=== PATIENT | female | born 1995 | race Caucasian/White ===

== ENCOUNTER 2023-05-04 16:39 | Outpatient (CLI) | payer BC, MEDICAID, SELFPAY ==
[2023-05-04] VITALS (7 sets, daily range): BP systolic 108–132; BP diastolic 56–69; PULSE 92–111; RESP 16; TEMP 36.6; BMI 28.4
--- NOTE | 2023-05-04 17:43 | USR_ITS ---
PROCEDURE INFORMATION: Exam: US , Limited Exam date and time: 05/04/2023 7:25 PM Age: 28 years old Clinical indication: Pain; Other: No prior ultrasound; Gestational age or lmp: 38w 6 d; ; Patient HX: G1-p0; Additional info: No care, for dating, anatomy, efw, placenta location, steve TECHNIQUE: Imaging protocol: Real-time ultrasound of the maternal uterus with image documentation. Exam focused on the clinical indication. COMPARISON: No relevant prior studies available. FINDINGS: Gestation: Single, living, intrauterine gestation in vertex presentation. heart rate: 141 bpm. Placenta: Fundally and to right, without previa or hemorrhage. Amniotic fluid index: Qualitatively and quantitatively normal, with amniotic fluid index measuring 18 cm in 4 quadrants. survey: demonstrates normal appearing lateral ventricles, posterior fossa, left-sided 4-chamber heart, LVOT, RVOT, left-sided stomach, 3-vessel cord insertion, bilateral kidneys, bladder, and cervical, thoracic, and lumbar spine. BIOMETRY: Gestational age (AUA): Composite age 38 weeks, 6 days +/-3 weeks, compared to estimated gestational age of 38 weeks, 3 days based on LMP of 08/08/22. Estimated weight: 3569 +/- 535 g (84th percentile based on ultrasound EGA). Biparietal diameter (BPD): 9.4 cm, 38 weeks, 3 days Head circumference (HC): 34.1 cm, 39 weeks, 2 days Abdominal circumference (AC): 34.7 cm, 38 weeks, 4 days Femur length (FL): 7.6 cm, 38 weeks, 6 days MATERNAL: Cervix: Closed. Other findings: Bilateral adnexa were not evaluated. US/ OB limited [id number] IMPRESSION: 1. Single, living, intrauterine gestation in vertex presentation, with EGA of 38 weeks, 6 days based on internally concordant measurements, compared to EEG of 38 weeks, 3 days based on LMP of 08/08/22. 2. Normal survey as described above.
[2023-05-04 19:09] LABS: Basophils # 0.1 10^3/uL (0.0-0.1); Basophils % 0.3 %; Eosinophils # 0.1 10^3/uL (0.0-0.8); Hematocrit 34.8 % (36-47); Lymphocytes # 2.5 10^3/uL (0.8-4.8); Lymphocytes % 17.5 %; Mean Corpuscular HGB Conc 32.5 g/dL (30-55); Mean Corpuscular Hemoglobin 25.7 pg (27-33); Mean Corpuscular Volume 79.1 fl (85-98); Mean Platelet Volume 10.2 fL (7.4-10.4); Monocytes # 1.3 10^3/uL (0.2-0.9); Monocytes % 8.8 %; Neutrophils # 10.36 10^3/uL (1.8-7.7); Neutrophils % 71.5 %; Nucleated Red Blood Cells % 0 %; Platelet Count 277 10^3/cmm (157-399); Red Cell Distribution Width 13.6 % (12.1-15.1); White Blood Count 14.49 10^3/uL (3.29-11.43)
[2023-05-04 19:27] LABS: HIV 1 & 2 Antibody Non-Reactive (Non-Reactiv); HIV 1 & 2 Antigen Non-Reactive (Non-Reactiv)
[2023-05-04 21:02] LABS: Rapid Plasma Reagin Syphilis Nonreactive (Nonreactive)
[2023-05-04 21:09] LABS: Hepatitis B Surface Antigen Non-Reactive (Nonreactive); Rubella IgG 42.1 IU/mL (0.0-10.0)
[2023-05-04 21:21] LABS: Alanine Aminotransferase 9 U/L (0-33); Albumin Level 3.5 g/dL (3.5-5.2); Alkaline Phosphatase 252 U/L (35-105); Anion Gap 14.5 (5-19); Aspartate Amino Transferase 18 U/L (0-32); Blood Urea Nitrogen 5 mg/dL (6-20); Calcium 9.2 mg/dL (8.5-10.5); Carbon Dioxide 21 mmol/L (22-29); Chloride 102 mmol/L (98-107); Globulin 3.1 g/dL (1.3-4.6); Glomerular Filtration Rate 268.9 mL/min (90-130); Glucose 83 mg/dL (65-115); Osmolality Calculated 274 mOsm/kg (285-295); Potassium 3.5 mmol/L (3.5-5.1); Sodium 134 mmol/L (136-145); Total Bilirubin 0.2 mg/dL (0.15-1.2); Total Protein 6.6 g/dL (6.6-8.7)
[2023-05-04 21:32] LABS: Add Urine Culture? Yes; Bacteria Urine 2+ /hpf; Bilirubin Urine Neg (Negative); Blood Urine Neg (Negative); Glucose Urine UA Norm (Normal); Ketones Urine 2+ (Negative); Leukocyte Esterase Urine 2+ (Negative); Nitrate Urine Negative (Negative); Protein Urine Neg (Negative); RBC Urine 0-4 /hpf (0-2); Squamous Epithelial Cell Urine 25-40 /hpf (0-5); Urine Appearance SL Hazy (CLEAR); Urine Color Yellow (Yellow); Urobilinogen Urine Norm (Negative); pH Urine 5 (5-7)
[2023-05-04 21:34] LABS: Amphetamines Screen Urine Negative (Negative); Barbiturates Screen Urine Negative (Negative); Benzodiazepines Screen Urine Negative (Negative); Cocaine Screen Urine Negative (Negative); Opiate Screen Urine Negative (Negative); PCP Screen Urine Negative (Negative); THC Screen Urine Negative (Negative)
[2023-05-06 12:35] LABS: Chlamydia Trachomatis RNA TMA NOT DETECTED (NOT DETECTED); Neisseria Gonorrhoeae RNA, TMA NOT DETECTED (NOT DETECTED)
== END 2023-05-04 20:30 | disposition home or self-care (01) ==
LOC: OPOB 16:40 → OBGYN 16:40
PROVIDERS: Visit Provider Obstetrics & Gynecology
DX: O26.893 Other specified pregnancy related conditions, third trimester (principal); Z3A.38 38 weeks gestation of pregnancy; R10.9 Unspecified abdominal pain
CPT/HCPCS: 36415; 59025; 76815; 80053; 80306; 81001; 85025; 86592; 86762; 86850; 86900; 87081; 87086; 87340; 87491; 87591; 87806; 99211

== ENCOUNTER → 2023-05-11 13:08 | Outpatient (BNVA) | payer BC, MEDICAID, SELFPAY | PROVIDERS: Visit Provider Obstetrics & Gynecology | DX: Z34.90 Encounter for supervision of normal pregnancy, unspecified, unspecified trimester (principal) | CPT/HCPCS: 81000 ==

== ENCOUNTER → 2023-05-14 14:00 | Outpatient (BNVA) | payer BC, MEDICAID, SELFPAY | PROVIDERS: Visit Provider Obstetrics & Gynecology | DX: Z34.90 Encounter for supervision of normal pregnancy, unspecified, unspecified trimester (principal) | CPT/HCPCS: 82950 ==

== ENCOUNTER 2023-05-20 18:06 | Outpatient (CLI) | payer BC, MEDICAID, SELFPAY ==
[2023-05-20 18:19] VITALS: BP 130/82; PULSE 94
[2023-05-20 18:21] VITALS: RESP 17; BMI 28.8
[2023-05-20 18:40] VITALS: BP 125/78; PULSE 96
== END 2023-05-20 18:43 ==
LOC: OPOB 18:07 → OBGYN 18:08
PROVIDERS: Visit Provider Obstetrics & Gynecology
DX: O48.0 Post-term pregnancy (principal); Z3A.00 Weeks of gestation of pregnancy not specified
CPT/HCPCS: 59025

== ENCOUNTER 2023-05-26 19:25 | Inpatient (IN) | payer BC, MEDICAID, SELFPAY ==
[2023-05-26 19:20] VITALS: BMI 28.9
[2023-05-26 20:35] LABS: Basophils % 0.2 %; Eosinophils # 0.1 10^3/uL (0.0-0.8); Eosinophils % 0.7 %; Hematocrit 33.7 % (36-47); Lymphocytes % 18.3 %; Mean Corpuscular HGB Conc 31.5 g/dL (30-55); Mean Corpuscular Hemoglobin 24.4 pg (27-33); Mean Corpuscular Volume 77.5 fl (85-98); Mean Platelet Volume 10.7 fL (7.4-10.4); Monocytes % 8.8 %; Neutrophils # 7.71 10^3/uL (1.8-7.7); Neutrophils % 71.1 %; Nucleated Red Blood Cells % 0 %; Platelet Count 259 10^3/cmm (157-399); Red Blood Count 4.35 10^6/uL (3.85-5.65); Red Cell Distribution Width 14.4 % (12.1-15.1); White Blood Count 10.84 10^3/uL (3.29-11.43)
[2023-05-26 20:38] VITALS: BP 119/82; PULSE 108
--- NOTE | 2023-05-26 20:45 | PM.OBGYHP ---
Providers/Chief Complaint Admitting Physician: Anthony Hanson MD Primary EDUCATION TRAINER: Anthony Hanson MD Chief Complaint: induction HPI EDUCATION TRAINER History of Present Illness 28 y.o. G1 LMP August 08, 2022 EDC by LMP May 15, 2023 At 41 w 4 d d by LMP No dating ultrasound Patient?s first visit was two weeks ago Patient has not had any care No previous ultrasound No c/o + active movements Has not been compliant with coming in for NSTs Now admitted for labor induction Present Details : 1 Para: 0 Labs Rubella: Immune RPR: Negative GBS: Negative Medications/Allergies Home Medications Medication Instructions Recorded Confirmed Last Taken Type No Known Home Medications 05/04/23 05/24/23 Unknown History Allergies Allergy/AdvReac Type Severity Reaction Status Date / Time No Known Allergies Allergy Unverified 05/24/23 15:55 PFSH EDUCATION TRAINER PFSH: Family History Denies family history of Colon cancer Ovarian cancer Prostate cancer Diabetes Heart disease Breast cancer Hypertension Uterine cancer Thyroid disease Stroke History History History 1 Term 0 Miscarriages/Ectopic Living Children Care KHAI Calculator Estimated Delivery Date Method Current WG Current Estimate 05/15/23 LMP (Certain) 41w 5d Other Estimates 05/12/23 Ultrasound #1 42w 1d Vitals/I&O/Wt Last Vital Signs Pulse 108 H 05/26/23 20:38 Resp 18 05/26/23 20:48 BP 119/82 05/26/23 20:38 O2 Del Method Room Air 05/26/23 19:20 Weight last 48 hrs Weight 174 lb Physical Exam Narrative: Weight 174 lbs; 5?5? VS normal Comfortable, awake, alert HEENT: normal Lungs: clear Cor: RRR Abd: nontender Fundal height 38 cm, cephalic Cx: closed / 25% / -3 / posterior FHTs normal Ext: no edema Data 05/26/23 20:20 Results Labs OB ([facility]): Obstetrics US 05/04/23 Blood Type A Positive 05/26/23 Antibody Screen Negative 05/26/23 Hct 33.7 % (36-47) L 05/26/23 Hgb 10.60 g/dL (11.27-16.99) L 05/26/23 Rho(D) Type Rh positive 05/26/23 Plt Count 259 10^3/cmm (157-399) 05/26/23 Hep Bs Antigen Non-reactive (Nonreactive) 05/04/23 Rubella IgG Antibody 42.1 IU/mL (0.0-10.0) H 05/04/23 RPR Nonreactive (Nonreactive) 05/04/23 HIV 1&2 Ab & HIV 1 Ag Non-reactive (Non-Reactiv) 05/04/23 C.trachomatis RNA (TMA) Not detected (NOT DETECTED) 05/04/23 N.gonorrhoeae RNA (TMA) Not detected (NOT DETECTED) 05/04/23 Chlamydia/GC Comment See note 05/04/23 Gest Glucose Tolerance 145 mg/dL (70-139) H 05/14/23 Urine Opiates Screen Negative ng/mL (Negative) 05/04/23 Ur Barbiturates Screen Negative ng/mL (Negative) 05/04/23 Ur Phencyclidine Scrn Negative ng/mL (Negative) 05/04/23 Ur Amphetamines Screen Negative ng/mL (Negative) 05/04/23 U Benzodiazepines Scrn Negative ng/mL (Negative) 05/04/23 Urine Cocaine Screen Negative ng/mL (Negative) 05/04/23 U Marijuana (THC) Screen Negative ng/mL (Negative) 05/04/23 Micro Urine Specimen 05/04/23 A&P Assessment and plan (1) : No care Dating by LMP No early ultrasound for dating 41 w 4 d Admitted for induction of labor Fetus reassuring Plan Cytotec 25 ug intravaginal (2) No care in current : Attestations Medical Necessity Statement*: patient at 41 w 4 d, admitted for induction of labor Coding Level of Care Code Acute Code for Chg Fwd Diagnoses Z34.90 No care in current O09.30 Time Spent (min) 30
[2023-05-26 20:48] VITALS: RESP 18
[2023-05-26] MEDS: miSOPROStol 100 mcg tablet 25 MCG VAGINAL (20:56)
[2023-05-27] VITALS (44 sets, daily range): BP systolic 109–158; BP diastolic 59–99; PULSE 80–115; TEMP 36.6–36.9; BMI 28.9
--- NOTE | 2023-05-27 05:43 | P.PN_ITS ---
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
[2023-05-27] MEDS: oxytocin 30 UNIT/500 ML BAG IV (05:57)
[2023-05-27] MEDS: dextrose 5%-lactated ringers 1,000 ML 125 ML IV ×3 (05:58→23:28)
[2023-05-27 08:04] LABS: Hepatitis C Virus Antibody Non-Reactive (Nonreactive)
--- NOTE | 2023-05-27 13:38 | P.PN_ITS ---
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 Subjective: Interval history: fetus reassuring feeling very mild UCs pitocin at 4 mU Cx: 1 cm / 75% / -2 / posterior continue pitocin Labor: Station: -1 Amniotic Membrane Status: Intact Monitor Mode: External Contraction Pattern: Regular Vitals/I&O/Wt Last Vital Signs Pulse 85 05/27/23 03:59 Resp 18 05/26/23 20:48 BP 118/69 05/27/23 03:59 O2 Del Method Room Air 05/27/23 12:48 05/26/23 05/27/23 05/27/23 22:59 06:59 14:59 Intake Total 0.467 / 0.467 3.667 / 3.667 Balance 0.467 / 0.467 3.667 / 3.667 Weight last 48 hrs Weight 174 lb Weight 174 lb Data 05/26/23 20:20 A&P Assessment and plan (1) Encounter for induction of labor: Attestations 2 Medical Necessity Statement*: patient at 41 w 5 d, admitted for induction of labor Coding Level of Care Code Acute Code for Chg Fwd Diagnoses Encounter for induction of labor Z34.90 Time Spent (min) 20
[2023-05-27] MEDS: lactated ringers 1,000 ML 999 ML IV (16:40)
[2023-05-27] MEDS: ROPivacaine syringe 100 MG/50 ML SYRINGE 10 MG EPIDURAL ×2 (17:41→21:16)
--- NOTE | 2023-05-27 17:47 | P.ANESASSM_ITS ---
Pre-Anesthetic Assessment Height/Weight: Height 1.65 m Weight 78.925 kg Pulse Resp BP O2 Del Method 102 H 18 158/65 Room Air 05/27/23 17:44 05/26/23 20:48 05/27/23 17:44 05/27/23 12:48 Preop Diagnosis: Labor pain GUME Was Beta Jacqueline taken within 24 hours: N/A Was Clonidine taken within 24 hours: N/A Social No alcohol and No tobacco Exam alert, oriented x 3, clear to auscultation bilaterally and regular rate & rhythm Airway Submandibular: within normal limits Cervical ROM: within normal limits Mallampati: Class II Dentition: full History/ROS No significant history except as noted and No significant complaints Pulmonary None reported CV/HEM None reported None reported Hepatic None reported GI None reported Metabolic None reported Musc/skel None reported Neuropsych None reported Anesthetic Plan ASA status: 2 Anesthesia: Anesthesia Evaluation and Regional (specify below) (GUME) Risk of > 500 ml blood loss (7ml/kg in children): No Medications/Allergies Home Medications Medication Instructions Recorded Confirmed Last Taken Type No Known Home Medications 05/04/23 05/24/23 Unknown History Allergies Allergy/AdvReac Type Severity Reaction Status Date / Time No Known Allergies Allergy Unverified 05/24/23 15:55 Current Medications Generic Name Dose Route Start Last Admin Trade Name Giovaniq PRN Reason Stop Dose Admin Dextrose/Lactated Ringer's 1,000 mls @ 125 mls/hr 05/26/23 20:30 05/27/23 17:40 Dextrose 5%-Lactated Ringers IV 125 mls/hr .Q8H JIMMY Infusion Oxytocin 30 unit in 500 mls @ 1 mls/hr 05/27/23 05:30 05/27/23 14:56 Pitocin IV 7 milliunit/min .Q24H JIMMY 7 mls/hr Titration Protocol 1 MILLIUNIT/MIN Lactated Ringer's 1,000 mls @ 999 mls/hr 05/27/23 16:20 05/27/23 17:40 Lactated Ringers IV Infused .Q1H1M PRN Infusion See label comments Ropivacaine 100 mg in 50 mls @ 10 mls/hr 05/27/23 16:30 05/27/23 17:41 Naropin Syringe EPIDURAL 10 mls/hr .Q5H JIMMY Administration PFSH Anesthesia Family History Denies family history of Colon cancer Ovarian cancer Prostate cancer Diabetes Heart disease Breast cancer Hypertension Uterine cancer Thyroid disease Stroke Female Reproductive History : 1 Data Anesthesia 05/26/23 20:20 Short CBC 05/26/23 Range/Units 20:20 WBC 10.84 (3.29-11.43) 10^3/uL Hgb 10.60 L (11.27-16.99) g/dL Hct 33.7 L (36-47) % MCV 77.5 L (85-98) fl Plt Count 259 (157-399) 10^3/cmm Neut % (Auto) 71.1 % Neut # (Auto) 7.71 H (1.8-7.7) 10^3/uL Blood Bank 05/26/23 20:20 Blood Type A Positive Rho(D) Type Rh positive Antibody Screen Negative Cardiac Studies: 2 No Data to Display
--- NOTE | 2023-05-27 17:49 | P.ANES_ITS ---
Anesthesia Procedures Procedure/Date: 05/27/23 Epidural: Time Out Performed: Yes Consents Signed: Procedure Consent Consent: from patient, risks and benefits reviewed and patient agrees to proceed Lumbar Level: L3-L4 Epidural position: sitting Epidural procedure: sterile prep of area, 1% lidocaine to numb the area, 18 g needle, neg for pares thesia, test dose given, 1.5% xylocaine 1:200k epi (5cc), 0.2% Ropivacaine bolus ml (4cc and Fentanyl 100 mcg), placed PCEA, no systemic response, sterile dressing applied, L.U.D. no apparent complications and 0.2% Ropiavacaine @ mls/hr (10cc/hour. Pt tolerated well)
--- NOTE | 2023-05-27 21:50 | P.PN_ITS ---
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 Subjective: Interval history: fetus reassuring comfortable with epidural Cervix: 2 cm / 75% / -2 / posterior AROM, clear fluid Labor: Station: -2 Amniotic Membrane Status: Ruptured Monitor Mode: Palpation Contraction Pattern: Regular Status: Category I Vitals/I&O/Wt Last Vital Signs Temp 98.2 F 05/27/23 22:23 Pulse 93 05/27/23 23:12 Resp 18 05/26/23 20:48 BP 114/71 05/27/23 23:12 O2 Del Method Room Air 05/27/23 12:48 05/27/23 05/27/23 05/28/23 14:59 22:59 06:59 Intake Total 1032.017 / 5075.730 4041.700 / 3433.717 Balance 1032.017 / 5789.310 9430.700 / 3433.717 Weight last 48 hrs Weight 174 lb Weight 174 lb Physical Exam 2 Urinary Catheter Management: Lee: Cath Placed During This Visit: yes Reason for Continuing Indwelling Catheter: Acute Urinary Retention or Obstruction Urinary Catheter Date of Insertion: 05/27/23 Urinary Catheter Time of Insertion: 18:56 Data 05/26/23 20:20 A&P Assessment and plan (1) Encounter for induction of labor: Attestations 2 Medical Necessity Statement*: patient at 41 w 5 d, admitted for induction of labor Coding Level of Care Code Acute Code for Chg Fwd Diagnoses Encounter for induction of labor Z34.90 Time Spent (min) 30
[2023-05-28] VITALS (63 sets, daily range): BP systolic 99–195; BP diastolic 45–105; PULSE 60–131; RESP 15–18; TEMP 36.7–37.8; O2SAT 92–100
--- NOTE | 2023-05-28 00:12 | PC.NURSE ---
Unable to chart titration in JUN. Pitocin titrated to 10 with Sonido Mckeon signing off at 2054
[2023-05-28] MEDS: ROPivacaine syringe 100 MG/50 ML SYRINGE 10 MG EPIDURAL ×2 (01:18→05:04)
[2023-05-28] MEDS: ondansetron 2 mg/ML SDV 2 mL 4 MG IVP (01:28)
--- NOTE | 2023-05-28 06:20 | PM.OBGYPN ---
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 Subjective Subjective: Interval history: fetus reassuring Cervix: 3 cm / 75% / -2 / posterior on pitocin IUPC placed patient then had an episode of bradycardia no vaginal bleeding pitocin discontinued placed in hands-knees position bradycardia resolved scalp electrode placed Labor: Station: -2 Amniotic Membrane Status: Ruptured Monitor Mode: Internal (IUPC) Contraction Pattern: Irregular Uterine Tone Measurement: 0 Status: Category I Vitals/I&O/Wt Last Vital Signs Temp 98.4 F 05/28/23 05:00 Pulse 113 H 05/28/23 07:27 Resp 18 05/26/23 20:48 BP 114/70 05/28/23 07:27 Pulse Ox 98 05/28/23 06:53 O2 Del Method Room Air 05/27/23 12:48 05/27/23 05/28/23 05/28/23 22:59 06:59 14:59 Intake Total 2401.700 / 3433.717 1809.533 / 5243.250 Output Total 1150 / 1150 Balance 2401.700 / 3433.717 659.533 / 4093.250 Weight last 48 hrs Weight 174 lb Weight 174 lb Physical Exam Urinary Catheter Management: Lee: Cath Placed During This Visit: yes Reason for Continuing Indwelling Catheter: Accurate Measurement of Urinary Output in Critically Ill Patients Urinary Catheter Date of Insertion: 05/27/23 Urinary Catheter Time of Insertion: 18:56 Data 05/26/23 20:20 A&P Assessment and plan (1) Encounter for induction of labor: Attestations Medical Necessity Statement*: patient at 41 w 5 d, admitted for induction of labor Coding Level of Care Code Acute Code for Chg Fwd Diagnoses Encounter for induction of labor Z34.90 Time Spent (min) 30
[2023-05-28] MEDS: dextrose 5%-lactated ringers 1,000 ML 125 ML IV (06:47)
--- NOTE | 2023-05-28 07:25 | P.PN_ITS ---
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 Subjective: Interval history: IUPC, FSE in place heart tracing with good variability, + accelerations UCs not adequate plan re-start pitocin Labor: Station: -2 Amniotic Membrane Status: Ruptured Monitor Mode: Internal (IUPC) Contraction Pattern: Irregular Uterine Tone Measurement: 0 Status: Category I Vitals/I&O/Wt Last Vital Signs Temp 98.4 F 05/28/23 05:00 Pulse 113 H 05/28/23 07:27 Resp 18 05/26/23 20:48 BP 114/70 05/28/23 07:27 Pulse Ox 98 05/28/23 06:53 O2 Del Method Room Air 05/27/23 12:48 05/27/23 05/28/23 05/28/23 22:59 06:59 14:59 Intake Total 2401.700 / 3433.717 1809.533 / 5243.250 Output Total 1150 / 1150 Balance 2401.700 / 3433.717 659.533 / 4093.250 Weight last 48 hrs Weight 174 lb Weight 174 lb Physical Exam 2 Urinary Catheter Management: Lee: Cath Placed During This Visit: yes Reason for Continuing Indwelling Catheter: Accurate Measurement of Urinary Output in Critically Ill Patients Urinary Catheter Date of Insertion: 05/27/23 Urinary Catheter Time of Insertion: 18:56 Data 05/26/23 20:20 A&P Assessment and plan (1) Encounter for induction of labor: Attestations 2 Medical Necessity Statement*: patient at 41 w 5 d, admitted for induction of labor Coding Level of Care Code Acute Code for Chg Fwd Diagnoses Encounter for induction of labor Z34.90 Time Spent (min) 30
[2023-05-28] MEDS: citric acid-sodium citrate 30 mL UDC PO (09:35)
[2023-05-28] MEDS: famotidine 20 mg/2 mL INJ IVP (09:36)
[2023-05-28] MEDS: methylergonovine 0.2 mg/mL INJ 1 mL IM (10:06)
[2023-05-28] MEDS: carboprost tromethamine 250 mcg/mL Amp IM (10:06)
--- NOTE | 2023-05-28 10:55 | PM.OP ---
Operative Report Date of procedure: May 28, 2023 Pre-op diagnosis: 40 w 6 d weeks gestation Induction of labor Cervix at 3 cm heart tracing with repetitive late decelerations Post-op diagnosis: Same as above Terminal meconium Tight nuchal cord Post-op findings: Vigorous male Normal placenta and cord Normal uterus, tubes, and ovaries Procedure done: Primary low-transverse Implants: none Specimens removed/disposition: placenta and cord, discarded cord gases and blood sent to lab Surgeon: Anthony Hanson MD Anesthesia: General Estimated blood loss (mL): 800 Complications: none Condition: stable Disposition: floor Brief History: 28 y.o. G1 with no care admitted at 41 w 4 d for induction of labor cervix was at 3 cm when heart tracing began to show repetitive late decelerations Procedure: Informed consent signed. Patient was taken to the operating room, placed supine in the left lateral tilt position. The abdomen was prepped and draped in the usual sterile fashion. The epidural was not effective for anesthesia. Anesthesia proceeded with general endotracheal. A Pfannenstiel incision was made and carried down through skin and subcutaneous tissue and fascia. The fascial incision was extended laterally with Trevino scissors. The fascia was from the underlying rectus muscles. The rectus muscles were split in the midline. The peritoneum was entered bluntly avoiding underlying organs. A bladder flap was created. A low transverse uterine incision was made and extended laterally bluntly avoiding the uterine vessels. Clear amniotic fluid was seen. The baby was delivered in cephalic presentation atraumatically. Tight nuchal cord was noted. Terminal meconium was noted. The baby was suctioned. The cord was clamped and cut and the baby was handed to an awaiting administrative assistant coordinator. Cord gases and blood were obtained. The placenta was manually removed intact. The uterus was noted to be boggy. Uterine massage, methergine and hemabate were given. The uterus was exteriorized. The uterine cavity was bluntly curetted with wet laps. The uterine incision was then closed with a continuous interlocking stitch of O chromic. Adequate hemostasis was seen. No bleeding was seen. Adequate contraction of the uterus was seen. The uterine incision was again inspected and found to have good hemostasis. The uterus was returned into the abdominal cavity. The fascia was then closed with a continuous stitch of O-Vicryl. Additional interrupted stitches of O-Vicryl were used for fascial closure. The subcutaneous tissue was irrigated and inspected for hemostasis. The skin was then reapproximated using Insorb eleanor. Postoperative condition stable Disposition to recovery room Estimated blood loss 800 cc, no replacement Sponge, needle, and instrument counts were correct x two There were no complications
--- NOTE | 2023-05-28 14:30 | P.PN_ITS ---
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 Subjective: Interval history: IUPC, FSE in place heart tracing now with repetitive late decelerations not improved with cessation of pitocin, position changes cervix: 3 cm will proceed with for delivery procedure and risks explained to patient, including risks of infection, bleeding, injury to internal organs, anesthesia, blood transfusions patient understands and wants to proceed Labor: Station: -2 Amniotic Membrane Status: Ruptured Monitor Mode: Internal (IUPC) Contraction Pattern: Irregular Uterine Tone Measurement: 0 Status: Category I Vitals/I&O/Wt Last Vital Signs Temp 98.7 F 05/28/23 11:30 Pulse 96 05/28/23 14:26 Resp 15 05/28/23 11:40 BP 115/55 05/28/23 14:26 Pulse Ox 94 05/28/23 11:40 O2 Del Method Room Air 05/28/23 11:40 05/27/23 05/28/23 05/28/23 22:59 06:59 14:59 Intake Total 2401.700 / 3433.717 1809.533 / 5243.250 Output Total 1150 / 1150 Balance 2401.700 / 3433.717 659.533 / 4093.250 Weight last 48 hrs Weight 174 lb Weight 174 lb Physical Exam 2 Urinary Catheter Management: Lee: Cath Placed During This Visit: yes Reason for Continuing Indwelling Catheter: Accurate Measurement of Urinary Output in Critically Ill Patients Urinary Catheter Date of Insertion: 05/27/23 Urinary Catheter Time of Insertion: 18:56 Data 05/26/23 20:20 A&P Assessment and plan (1) Encounter for induction of labor: Attestations 2 Medical Necessity Statement*: patient at 41 w 6 d, admitted for induction of labor Coding Level of Care Code Acute Code for Chg Fwd Diagnoses Encounter for induction of labor Z34.90 Time Spent (min) 45
[2023-05-28] MEDS: ketorolac 30 mg/mL INJ IVP ×2 (17:06→22:15)
[2023-05-28 23:06] LABS: Hematocrit 27.7 % (36-47); Mean Corpuscular Hemoglobin 24.6 pg (27-33); Mean Corpuscular Volume 79.1 fl (85-98); Mean Platelet Volume 10.8 fL (7.4-10.4); Platelet Count 199 10^3/cmm (157-399); Red Cell Distribution Width 14.7 % (12.1-15.1)
[2023-05-28] MEDS: HYDROcodone-acetaminophen 5-325 mg Tablet PO (23:14)
[2023-05-29] VITALS (7 sets, daily range): BP systolic 101–120; BP diastolic 55–68; PULSE 74–102; RESP 16–18; TEMP 36.5–36.9; O2SAT 98
[2023-05-29] MEDS: ketorolac 30 mg/mL INJ IVP (04:01)
[2023-05-29] MEDS: ferrous sulfate EC 325 mg Tablet PO (09:08)
[2023-05-29] MEDS: docusate sodium 100 mg Capsule PO (09:08)
[2023-05-29] MEDS: prenatal vitamin Capsule 1 CAP PO (09:08)
[2023-05-29] MEDS: HYDROcodone-acetaminophen 5-325 mg Tablet PO ×2 (12:22→21:10)
--- NOTE | 2023-05-29 12:23 | P.PN_ITS ---
Subjective 2 Subjective: Mrs. Fuentes 28-year-old female with no care. Status post delivery day 1. Refers doing fine and pain under control. Vitals/I&O/Wt Last Vital Signs Temp 97.7 F 05/29/23 06:00 Pulse 85 05/29/23 09:10 Resp 18 05/29/23 06:00 BP 119/61 05/29/23 09:10 Pulse Ox 94 05/28/23 11:40 O2 Del Method Room Air 05/28/23 11:40 05/28/23 05/29/23 05/29/23 22:59 06:59 14:59 Output Total 1700 / 1700 200 / 1900 Balance -1700 / -1700 -200 / -1900 Physical Exam 2 Narrative: GA; alert and oriented x 3 HEENT: normal Breasts: engorged Nipples - skin intact Lungs; clear to auscultation Heart: regular rhythm, no murmurs. Abd: Appropriately tender. BS+. Uterine fundus below umbilicus. No Fundal Tenderness. minimal tenderness, incision clean and dry, no redness, pain or edema. Perineum: normal lochia. Extremities: no edema, no cyanosis, no tenderness. Urinary Catheter Management: Lee: Cath Placed During This Visit: yes, but has since been removed by the nurse Reason for Continuing Indwelling Catheter: Decision to DC Catheter Urinary Catheter Date of Insertion: 05/27/23 Urinary Catheter Time of Insertion: 18:56 Date Urinary Catheter Removed: 05/28/23 Time Urinary Catheter Discontinued: 22:00 Data 05/28/23 22:30 A&P Assessment and plan (1) Status post section: Mrs. Fuentes 28-year-old female with no care. Status post delivery day 1. She is afebrile and hemodynamically stable. Tolerating diet well. Passing flatus. Ambulating without difficulty. Plan Continue postop observation Attestations 2 Medical Necessity Statement*: In my professional opinion per admitting diagnosis Coding Level of Care Code Acute Code for Chg Fwd Diagnoses Status post section Z98.891
[2023-05-29] MEDS: ibuprofen 800 mg tablet PO ×2 (15:32→21:10)
[2023-05-30 06:00] VITALS: BP 108/66; PULSE 91; RESP 18; TEMP 36.7
[2023-05-30] MEDS: ferrous sulfate EC 325 mg Tablet PO ×2 (09:02→17:31)
[2023-05-30] MEDS: docusate sodium 100 mg Capsule PO ×2 (09:02→17:31)
[2023-05-30] MEDS: ibuprofen 800 mg tablet PO ×3 (09:02→20:25)
[2023-05-30] MEDS: prenatal vitamin Capsule 1 CAP PO (09:03)
[2023-05-30 09:15] VITALS: BP 96/57; PULSE 91; RESP 18; TEMP 36.9; O2SAT 96
--- NOTE | 2023-05-30 10:18 | PM.OBGYDC ---
Discharge Providers FABRICATOR ARTIFICIAL BREAST Date of Admission: 05/28/23 07:00 Date of Discharge: 05/30/23 Attending Provider at Admission: Anthony Hanson MD Attending Provider at Discharge: Dakotah Gardner MD Primary FABRICATOR ARTIFICIAL BREAST: Anthony Hanson MD Diagnoses at Discharge Discharge Diagnosis (1) Status post section: Status: Acute Reason for Visit Reason for Visit: induction Brief History: Plus months 28-year-old female with no care came to labor and delivery at 41 and 6 days. She was admitted for induction she had a slow progress and delivery was performed due to nonreassuring status. Postop observation has been uneventful. She is afebrile and hemodynamically stable postoperative day 2. Tolerating diet well. Ambulating without difficulty. She was counseled regarding pelvic rest for 6 weeks (no sex, no tampons, no vaginal douches). Return to the emergency room if any fever, increased bleeding or pain. Information Peripartum Data: Infant Delivery Method: Physical Exam Narrative: GA; alert and oriented x 3 HEENT: normal Breasts: engorged Nipples - skin intact Lungs; clear to auscultation Heart: regular rhythm, no murmurs. Abd: Appropriately tender. BS+. Uterine fundus below umbilicus. No Fundal Tenderness. minimal tenderness, incision clean and dry, no redness, pain or edema. Perineum: normal lochia. Extremities: no edema, no cyanosis, no tenderness. Urinary Catheter Management: Lee: Cath Placed During This Visit: yes, but has since been removed by the nurse Reason for Continuing Indwelling Catheter: Decision to DC Catheter Urinary Catheter Date of Insertion: 05/27/23 Urinary Catheter Time of Insertion: 18:56 Date Urinary Catheter Removed: 05/28/23 Time Urinary Catheter Discontinued: 22:00 History History History 1 Term 0 Miscarriages/Ectopic Living Children Discharge Data Studies Completed and Pending Laboratory Results WBC 18.90 10^3/uL (3.29-11.43) H 05/28/23 22:30 RBC 3.50 10^6/uL (3.85-5.65) L 05/28/23 22:30 Hgb 8.60 g/dL (11.27-16.99) L 05/28/23 22:30 Hct 27.7 % (36-47) L 05/28/23 22:30 MCV 79.1 fl (85-98) L 05/28/23 22:30 MCH 24.6 pg (27-33) L 05/28/23 22:30 MCHC 31.0 g/dL (30-55) 05/28/23 22:30 RDW 14.7 % (12.1-15.1) 05/28/23 22:30 Plt Count 199 10^3/cmm (157-399) 05/28/23 22:30 MPV 10.8 fL (7.4-10.4) H 05/28/23 22:30 Neut % (Auto) 71.1 % 05/26/23 20:20 Lymph % (Auto) 18.3 % 05/26/23 20:20 [place] % (Auto) 8.8 % 05/26/23 20:20 Eos % (Auto) 0.7 % 05/26/23 20:20 Baso % (Auto) 0.2 % 05/26/23 20:20 Neut # (Auto) 7.71 10^3/uL (1.8-7.7) H 05/26/23 20:20 Lymph # (Auto) 2.0 10^3/uL (0.8-4.8) 05/26/23 20:20 [place] # (Auto) 1.0 10^3/uL (0.2-0.9) H 05/26/23 20:20 Eos # (Auto) 0.1 10^3/uL (0.0-0.8) 05/26/23 20:20 Baso # (Auto) 0.0 10^3/uL (0.0-0.1) 05/26/23 20:20 Nucleated RBC % (auto) 0 % 05/26/23 20:20 Nucleated RBCs # 0.0 /100WBC 05/26/23 20:20 Hepatitis C Antibody Non-reactive (Nonreactive) 05/27/23 07:09 Blood Type A Positive 05/26/23 20:20 Rho(D) Type Rh positive 05/26/23 20:20 Antibody Screen Negative 05/26/23 20:20 Vitals Last Vital Signs Temp 98.4 F 05/30/23 09:15 Pulse 91 05/30/23 09:15 Resp 18 05/30/23 09:15 BP 96/57 05/30/23 09:15 Pulse Ox 96 05/30/23 09:15 O2 Del Method Room Air 05/30/23 09:15 Results Labs OB ([facility]): Obstetrics US 05/04/23 Blood Type A Positive 05/26/23 Antibody Screen Negative 05/26/23 Hct 27.7 % (36-47) L 05/28/23 Hgb 8.60 g/dL (11.27-16.99) L 05/28/23 Rho(D) Type Rh positive 05/26/23 Plt Count 199 10^3/cmm (157-399) 05/28/23 Hep Bs Antigen Non-reactive (Nonreactive) 05/04/23 Hepatitis C Antibody Non-reactive (Nonreactive) 05/27/23 Rubella IgG Antibody 42.1 IU/mL (0.0-10.0) H 05/04/23 RPR Nonreactive (Nonreactive) 05/04/23 HIV 1&2 Ab & HIV 1 Ag Non-reactive (Non-Reactiv) 05/04/23 C.trachomatis RNA (TMA) Not detected (NOT DETECTED) 05/04/23 N.gonorrhoeae RNA (TMA) Not detected (NOT DETECTED) 05/04/23 Chlamydia/GC Comment See note 05/04/23 Gest Glucose Tolerance 145 mg/dL (70-139) H 05/14/23 Urine Opiates Screen Negative ng/mL (Negative) 05/04/23 Ur Barbiturates Screen Negative ng/mL (Negative) 05/04/23 Ur Phencyclidine Scrn Negative ng/mL (Negative) 05/04/23 Ur Amphetamines Screen Negative ng/mL (Negative) 05/04/23 U Benzodiazepines Scrn Negative ng/mL (Negative) 05/04/23 Urine Cocaine Screen Negative ng/mL (Negative) 05/04/23 U Marijuana (THC) Screen Negative ng/mL (Negative) 05/04/23 Micro Urine Specimen 05/04/23 Discharge Plan Discharge Patient Disposition: Home Condition: Stable Prescriptions: New ibuprofen 800 mg tablet 800 mg PO TID PRN (Reason: pain) Qty: 60 0RF hydrocodone-acetaminophen 5-325 mg tablet 1 tab PO Q4H PRN (Reason: pain) Qty: 20 0RF ferrous sulfate [Iron (ferrous sulfate)] 325 mg (65 mg iron) tablet 325 mg PO BID Qty: 60 0RF docusate sodium [Colace] 100 mg capsule 100 mg PO BID Qty: 60 0RF acetaminophen 325 mg capsule 325 mg PO Q4H PRN (Reason: fever or pain) Qty: 60 0RF Discharge Orders: Discharge Order (Routine); Ordered 05/30/23 Ordered By: Dakotah Gardner Referrals: Anthony Hanson MD [Physician] - 2 weeks Discharge Diet: Regular Discharge Activity: Limit activity as instructed Patient Instructions: Opioid Safety, (GEN), Caring for Your Baby (GEN), Choosing Between Vaginal After () or Repeat... (GEN), TTN (Transient Tachypnea of ) (IP), Your 's Appearance (GEN) Activity Restrictions/Additional Instructions: 1. Please call [facility] on next working day to make your post-operative appointment in 2 weeks. 2. Please stay home until you come back to the clinic on first post-hospatilization check up. 3. Please follow instructions on your medications CAREFULLY. 4. If you have abdominal incision, do not cover it unless dressing is necessary because of drainage. OK to shower, but avoid bath. Leave steri-strips until they fall off. If they are still on one week after surgery, you may remove them. 5. If you had vaginal surgery or vaginal repair, Dr. Gardner may instruct you to take SITZ bath. 6. Yellow, blood tinged odorous vaginal discharge is usually normal after hysterectomy or vaginal surgeries. 7. No SEXUAL INTERCOURSE, tampons, or douches until you are completely released from the post-operative care. 8. Avoid constipation by eating right and maybe using some Metamucil or Milk of Magnesia. 9. All prescription refills are given during the working hours. Please do no wait till it runs out. Call the clinic at [phone] before your medication runs out. The clinic will get in touch with your doctor to prescribe medications if necessary. 10. Please remain within 40 mile radius from our hospital because emergencies do happen now and then during the post-operative period. 11. If you have stairs at home, take one step at a time slowly and minimize the number of trips. It helps to stay in one floor for the next few days. No lifting except what you can lift by one hand until you are released from the post-operative care. 12. Driving is discouraged until you are well healed. It may be 3-4 weeks before you feel strong enough to drive. You should be able to turn and look through the rear window without pain and you should be able to push the brake pedal very hard without pain before you drive. No fast rules, but SAFETY should be your primary concern. DO NOT drive if you are on sedating medications such as narcotics. 13. Call the clinic (during working hours) to make urgent appointment or go to the Emergency room, if any of the following occurs: i. Vaginal bleeding becomes heavy, more than a period. ii. Incision becomes red and sore, or drains pus. iii. Your TEMPERATURE is over 100.4F or you have chill. iv. IV site becomes red and swollen (a little ``knot?? is usually OK) v. Persistent nausea and vomiting vi. Persistent constipation or diarrhea vii. Rash or allergic reaction to medications. Discharge Attestations FABRICATOR ARTIFICIAL BREAST Time Spent in Discharge Care*: greater than 30 min Coding Level of Care Code Acute Code for Chg Fwd Diagnoses Status post section Z98.891
[2023-05-30 18:00] VITALS: BP 106/68; PULSE 99; RESP 16; TEMP 36.6; O2SAT 97
[2023-05-30] MEDS: lanolin oint 7 gm 1 APPLIC TOPICAL (18:05)
[2023-05-30 20:27] VITALS: BP 119/73; PULSE 85; RESP 15; TEMP 36.7; O2SAT 97
[2023-05-30 20:30] VITALS: BP 119/73; PULSE 85; RESP 15; TEMP 36.7; O2SAT 97
--- NOTE | 2023-05-31 07:27 | ANE.PACU2 ---
Inpatient post-anesthesia follow up: Airway intact: Yes Vital signs: Temperature 98.1 F Pulse Rate 85 Respiratory Rate 15 Blood Pressure 119/73 Pulse Oximetry 97 Oxygen Delivery Me thod Room Air Oxygen Flow Rate Fraction of Inspir ed Oxygen Hydration adequate: Yes Nausea and vomiting: No Pain level: 2 Mental status: Baseline Epidural Start/End: Epidural Start Date: 05/27/23 Epidural Start Time: 17:26 Epidural End Date: 05/28/23 Epidural End Time: 11:00
== END 2023-05-30 20:30 | disposition home or self-care (01) | DRG 788 ==
LOC: OPOB 19:27 → OBGYN 23:25
PROVIDERS: Admitting Provider Obstetrics & Gynecology; Visit Provider Obstetrics & Gynecology
PROC: 10D00Z1 Extraction of Products of Conception, Low, Open Approach (ICD-10-PCS; CPT 59514; principal; 2023-05-28 09:50)
DX: O48.0 Post-term pregnancy (principal); O77.0 Labor and delivery complicated by meconium in amniotic fluid; O69.1XX0 Labor and delivery complicated by cord around neck, with compression, not applicable or unspecified; O76 Abnormality in fetal heart rate and rhythm complicating labor and delivery; Z3A.41 41 weeks gestation of pregnancy; Z37.0 Single live birth
CPT/HCPCS: 36415; 51702; 59025; 59409; 83986; 85025; 85027; 86803; 86850; 86900; 96372; 96374; G0378; J1170; J1885; J2210; J2405; J2590; J2795; J3010; J3490; J7030; J7120; J7121

== ENCOUNTER → 2023-08-09 14:39 | Outpatient (BNVA) | payer BC, MEDICAID, SELFPAY | PROVIDERS: Visit Provider Obstetrics & Gynecology | DX: Z01.419 Encounter for gynecological examination (general) (routine) without abnormal findings (principal) | CPT/HCPCS: 87624 ==

== ENCOUNTER → 2024-03-30 07:57 | Outpatient (BNVA) | payer BC, MEDICAID, SELFPAY | PROVIDERS: Visit Provider Nurse Practitioner Women's Health | DX: Z32.01 Encounter for pregnancy test, result positive (principal); N91.2 Amenorrhea, unspecified | CPT/HCPCS: 81025; 84702; 86850; 86900 ==

== ENCOUNTER → 2024-04-18 07:53 | Outpatient (BNVA) | payer BC, MEDICAID, SELFPAY | PROVIDERS: Visit Provider Obstetrics & Gynecology | DX: Z34.91 Encounter for supervision of normal pregnancy, unspecified, first trimester (principal); Z3A.09 9 weeks gestation of pregnancy | CPT/HCPCS: 76801 ==

== ENCOUNTER → 2024-04-27 11:21 | Outpatient (BNVA) | payer BC, MEDICAID, SELFPAY | PROVIDERS: Visit Provider Nurse Practitioner Women's Health | DX: Z34.90 Encounter for supervision of normal pregnancy, unspecified, unspecified trimester (principal); Z3A.11 11 weeks gestation of pregnancy | CPT/HCPCS: 80307; 84315; 84443; 85025; 86592; 86762; 86803; 86850; 86900; 87086; 87340; 87491; 87591; 87661; 87806 ==

== ENCOUNTER → 2024-05-12 10:46 | Outpatient (BNVA) | payer BC, MEDICAID, SELFPAY | PROVIDERS: Visit Provider Obstetrics & Gynecology | DX: Z34.82 Encounter for supervision of other normal pregnancy, second trimester (principal) | CPT/HCPCS: 84315 ==

== ENCOUNTER → 2024-05-31 13:07 | Outpatient (BNVA) | payer BC, MEDICAID, SELFPAY | PROVIDERS: Visit Provider Nurse Practitioner Women's Health | DX: Z34.80 Encounter for supervision of other normal pregnancy, unspecified trimester (principal) | CPT/HCPCS: 84315 ==

== ENCOUNTER → 2024-06-09 10:09 | Outpatient (BNVA) | payer BC, MEDICAID, SELFPAY | PROVIDERS: Visit Provider Obstetrics & Gynecology | DX: Z34.90 Encounter for supervision of normal pregnancy, unspecified, unspecified trimester (principal); Z34.80 Encounter for supervision of other normal pregnancy, unspecified trimester | CPT/HCPCS: 84315; 87491; 87591; 87661 ==

== ENCOUNTER → 2024-06-28 09:12 | Outpatient (BNVA) | payer BC, MEDICAID, SELFPAY | PROVIDERS: Visit Provider Nurse Practitioner Women's Health | DX: Z34.92 Encounter for supervision of normal pregnancy, unspecified, second trimester (principal) | CPT/HCPCS: 76805 ==

== ENCOUNTER → 2024-07-26 11:03 | Outpatient (BNVA) | payer MEDICAID, SELFPAY | PROVIDERS: Visit Provider Nurse Practitioner Women's Health | DX: Z34.80 Encounter for supervision of other normal pregnancy, unspecified trimester (principal) | CPT/HCPCS: 84315 ==

== ENCOUNTER → 2024-08-23 08:25 | Outpatient (BNVA) | payer MEDICAID, SELFPAY | PROVIDERS: Visit Provider Nurse Practitioner Women's Health | DX: Z34.80 Encounter for supervision of other normal pregnancy, unspecified trimester (principal) | CPT/HCPCS: 82950; 84315; 85025 ==

== ENCOUNTER → 2024-09-04 10:07 | Outpatient (BNVA) | payer MEDICAID, SELFPAY | PROVIDERS: Visit Provider Obstetrics & Gynecology | DX: Z34.80 Encounter for supervision of other normal pregnancy, unspecified trimester (principal) | CPT/HCPCS: 84315 ==

== ENCOUNTER → 2024-09-12 11:22 | Outpatient (BNVA) | payer MEDICAID, SELFPAY | PROVIDERS: Visit Provider Obstetrics & Gynecology | DX: Z36.9 Encounter for antenatal screening, unspecified (principal) | CPT/HCPCS: 76816 ==

== ENCOUNTER → 2024-09-26 14:01 | Outpatient (BNVA) | payer MEDICAID, SELFPAY | PROVIDERS: Visit Provider Nurse Practitioner Women's Health | DX: Z34.80 Encounter for supervision of other normal pregnancy, unspecified trimester (principal); K21.9 Gastro-esophageal reflux disease without esophagitis | CPT/HCPCS: 84315 ==

== ENCOUNTER → 2024-10-03 08:00 | Outpatient (BNVA) | payer MEDICAID, SELFPAY | PROVIDERS: Visit Provider Nurse Practitioner Women's Health | DX: Z34.90 Encounter for supervision of normal pregnancy, unspecified, unspecified trimester (principal); Z98.891 History of uterine scar from previous surgery | CPT/HCPCS: 84315 ==

== ENCOUNTER → 2024-10-19 13:24 | Outpatient (BNVA) | payer MEDICAID, SELFPAY | PROVIDERS: Visit Provider Obstetrics & Gynecology | DX: Z34.83 Encounter for supervision of other normal pregnancy, third trimester (principal) | CPT/HCPCS: 84315; 87081 ==

== ENCOUNTER → 2024-10-25 09:12 | Outpatient (BNVA) | payer MEDICAID, SELFPAY | PROVIDERS: Visit Provider Obstetrics & Gynecology | DX: Z34.80 Encounter for supervision of other normal pregnancy, unspecified trimester (principal) | CPT/HCPCS: 84315 ==

== ENCOUNTER → 2024-11-01 15:48 | Outpatient (BNVA) | payer MEDICAID, SELFPAY | PROVIDERS: Visit Provider Obstetrics & Gynecology | DX: Z34.90 Encounter for supervision of normal pregnancy, unspecified, unspecified trimester (principal) | CPT/HCPCS: 84315 ==

== ENCOUNTER 2024-11-08 05:15 | Inpatient (IN) | payer BC, MEDICAID, SELFPAY ==
--- NOTE | 2024-11-07 10:52 | P.ANESASSM_ITS ---
Pre-Anesthetic Assessment Height/Weight: Height 1.7 m Operation Date: 11/08/24 07:20 Proposed Procedures p Section Repeat(Not Applicable) - Anthony Hanson MD Familial anesthetic complications: Epidural failed for ; required geta Was Beta Jacqueline taken within 24 hours: N/A Was Clonidine taken within 24 hours: N/A Social No alcohol and No tobacco Exam alert, oriented x 3, clear to auscultation bilaterally and regular rate & rhythm Airway Mallampati: Class I Dentition: full Anesthetic Plan ASA status: 2 Anesthesia: Regional (specify below) Risk of > 500 ml blood loss (7ml/kg in children): No Medications/Allergies Home Medications ?Medication ?Instructions ?Recorded ?Confirmed ?Last Taken ?Type famotidine 20 mg tablet (Pepcid) 20 mg PO BID #60 tabs 09/26/24 11/01/24 Unknown Rx Allergies Allergy/AdvReac Type Severity Reaction Status Date / Time No Known Allergies Allergy Verified 11/01/24 08:49 [facility] Anesthesia Surgical History Status post section Family History Denies family history of Colon cancer Ovarian cancer Prostate cancer Diabetes Heart disease Breast cancer Hypertension Uterine cancer Thyroid disease Stroke Social History Smoking and tobacco/nicotine status: never used tobacco/nicotine
[2024-11-07 22:30] VITALS: BP 102/65; PULSE 82; TEMP 36.8
[2024-11-08] VITALS (123 sets, daily range): BP systolic 87–143; BP diastolic 32–85; PULSE 76–128; RESP 16–18; TEMP 36.3–36.9; O2SAT 91–100; BMI 28.0
[2024-11-08 05:52] LABS: Hematocrit 32.1 % (36-47); Hemoglobin 9.70 g/dL (11.27-16.99); Mean Corpuscular HGB Conc 30.2 g/dL (30-55); Mean Corpuscular Hemoglobin 22.4 pg (27-33); Mean Corpuscular Volume 74.1 fl (85-98); Nucleated Red Blood Cells % 0 %; Platelet Count 228 10^3/cmm (157-399); Red Blood Count 4.33 10^6/uL (3.85-5.65); White Blood Count 13.13 10^3/uL (3.29-11.43)
--- NOTE | 2024-11-08 05:53 | PC.NURSE ---
Patient reported chugging 1/2 an OZH mug of water at 0400 before arrival. 0547am Called VINCENZO Mckeon to ask whether this would delay surgery. VINCENZO Mckeon deferred to Dr Noyola for decision. 0550am Called Dr Noyola to ask if surgery would need to be delayed. Dr Noyola stated 3 hours should be fine to proceed at normal time with section since it was just water.
[2024-11-08] MEDS: metoclopramide 5 mg/mL SDV 2 mL 10 MG IVP (07:00)
--- NOTE | 2024-11-08 07:00 | P.ANESUD_ITS ---
Pre-Anesthetic Update Pre-Anesthetic Assessment: Date of Surgery/Procedure: 11/08/24 Preop Karina gnosis: repeat Proposed Procedure: Operation Date: 11/08/24 07:20 Proposed Procedures p Section Repeat(Not Applicable) - Anthony Hanson MD Any changes to Pre-Anesthetic Assessment?: No Last Intake: Intake Last Liquid Date 11/08/24 Last Liquid Time 04:00 Last Solid Date 11/07/24 Last Solid Time 23:00 Last Intake: 04:00 Labs Last 48hrs: Short CBC 11/08/24 Range/Units 05:35 WBC 13.13 H (3.29-11.43) 10^ 3/uL Hgb 9.70 L (11.27-16.99) g/ dL Hct 32.1 L (36-47) % MCV 74.1 L (85-98) fl Plt Count 228 (157-399) 10^3/c mm Neut % (Auto) 68.4 % Neut # (Auto) 8.98 H (1.8-7.7) 10^3/u L Blood Bank 11/08/24 05:35 Blood Type A Positive Rho(D) Type Rh positive Antibody Screen Negative Vitals: Temperature 97.9 F 11/08/24 05:31 Pulse Rate 99 11/08/24 06:58 Pulse Rhythm Regular 11/08/24 05:31 Pulse Strength 3+ Normal 11/08/24 05:31 Respiratory Effort Spontaneous, Non- Labored, Easy 11/08/24 05:31 Respiratory Depth Normal 11/08/24 05:31 Respiratory Patter n Normal 11/08/24 05:31 Blood Pressure 108/62 11/08/24 06:58 Oxygen Delivery Me thod Room Air 11/08/24 06:05 Exam: Pre-Anes Outpt Exam: alert and oriented x 3
[2024-11-08] MEDS: citric acid-sodium citrate 30 mL UDC PO (07:01)
--- NOTE | 2024-11-08 07:15 | PM.OBGYHP ---
Providers/Chief Complaint Admitting Physician: Anthony Hanson MD Primary JANITORIAL MANAGER: Anthony Hanson MD Chief Complaint: C Section HPI JANITORIAL MANAGER History of Present Illness Cayal Fuentes is a 29 year old female EDC November 12, 2024 At 39 w 3 d No complications h/o previous LTCS x one now admitted for repeat for delivery No c/o + active movements Present Details : 2 Para: 1 Labs Rubella: Immune RPR: Negative GBS: Negative Specific History Indications for Section: Repeat Medications/Allergies Home Medications ?Medication ?Instructions ?Recorded ?Confirmed ?Last Taken ?Type PNV 153-FA 400 mcg-om3 35 mg-dha 1 tab PO DAILY 11/08/24 11/08/24 11/07/24 History 25 mg-epa 5 mg-fish oil chew tablet ( Gummies) Allergies Allergy/AdvReac Type Severity Reaction Status Date / Time No Known Allergies Allergy Verified 11/08/24 05:32 PFSH JANITORIAL MANAGER PFSH: Surgical History Status post section Family History Denies family history of Colon cancer Ovarian cancer Prostate cancer Diabetes Heart disease Breast cancer Hypertension Uterine cancer Thyroid disease Stroke Social History Smoking and tobacco/nicotine status: never used tobacco/nicotine History History History 2 Term 1 0 Miscarriages/Ectopic 0 Living Children 1 Care KHAI Calculator Estimated Delivery Date Method Current WG Current Estimate 11/12/24 LMP (Certain) 39w 4d Other Estimates 11/15/24 Ultrasound #1 39w 1d Specific Issues/Plans HX OF : Primary for nonreassuring heart tones Vitals/I&O/Wt Last Vital Signs Temp 98.0 F 11/08/24 18:15 Pulse 83 11/09/24 03:33 Resp 16 11/08/24 18:15 BP 96/49 11/09/24 03:33 Pulse Ox 100 11/08/24 18:15 O2 Del Method Room Air 11/08/24 18:15 11/08/24 11/08/24 11/09/24 14:59 22:59 06:59 Intake Total 1900 / 1900 1100 / 3000 Output Total 1075 / 1075 550 / 1625 Balance 825 / 825 550 / 1375 Weight last 48 hrs Weight 179 lb 8 oz Weight 179 lb 8.006 oz Physical Exam Narrative: Weight 179 lbs 5?5? VS normal General comfortable, awake, alert Lungs: clear Cor: RRR Abd: soft, nontender FH 38 cm Ext: normal External monitor: heart tracing good variability, + accelerations Urinary Catheter Management: Lee Latex Free: Cath Placed During This Visit: yes, but has since been removed by the nurse Reason for Continuing Indwelling Catheter: Decision to DC Catheter Urinary Catheter Date of Insertion: 11/08/24 Urinary Catheter Time of Insertion: : Date Urinary Catheter Removed: 11/08/24 Time Urinary Catheter Discontinued: 18:45 Data 11/08/24 22:30 Results Labs OB ([facility]): Obstetrics US 09/12/24 Blood Type A Positive 11/08/24 Antibody Screen Negative 11/08/24 Hct, (36-47) 22.8 % L 11/08/24 Hgb, (11.27-16.99) 6.90 g/dL L 11/08/24 Rho(D) Type Rh positive 11/08/24 Plt Count, (157-399) 164 10^3/cmm 11/08/24 Hep Bs Antigen, (Nonreactive) Non-reactive 04/27/24 Hepatitis C Antibody, (Nonreactive) Non-reactive 04/27/24 Rubella IgG Antibody, (0.0-10.0) 56.2 IU/mL H 04/27/24 RPR, (Nonreactive) Nonreactive 04/27/24 HIV 1&2 Ab & HIV 1 Ag, (Non-Reactiv) Non-reactive 04/27/24 TSH, (0.27-4.20) 0.58 uIU/mL 04/27/24 C.trachomatis RNA (TMA), (NOT DETECTED) Not detected 05/04/23 N.gonorrhoeae RNA (TMA), (NOT DETECTED) Not detected 05/04/23 Chlamydia/GC Comment See note 05/04/23 Glucose 1 Hr 50 gm, (85-140) 121 mg/dL 08/23/24 Gest Glucose Tolerance, (70-139) 145 mg/dL H 05/14/23 Ser , Semi-Qnt 80024.00 mIU/mL 03/30/24 HCG, Qual, (Negative) Positive H 03/30/24 Urine Opiates Screen, (Negative) Negative ng/mL 04/27/24 Ur Barbiturates Screen, (Negative) Negative ng/mL 04/27/24 Ur Phencyclidine Scrn, (Negative) Negative ng/mL 04/27/24 Ur Amphetamines Screen, (Negative) Negative ng/mL 04/27/24 U Benzodiazepines Scrn, (Negative) Negative ng/mL 04/27/24 Urine Cocaine Screen, (Negative) Negative ng/mL 04/27/24 U Marijuana (THC) Screen, (Negative) Negative ng/mL 04/27/24 Micro Urine Specimen 04/27/24 Pap Smear Interpret See note 08/09/23 A&P Assessment and plan 1. : 39 w 3 d fetus reassuring 2. H/O section: h/o low-transverse x one admitted for repeat procedure and risks explained to patient Risks include, but not limited to, infection, bleeding, injury to internal organs, anesthesia, blood transfusions Patient understands and wants to proceed PDMP PDMP Reviewed: Not Reviewed Attestations Medical Necessity Statement*: patient at 39 w 3 d, admitted for repeat Coding Level of Care Code Acute Code for Chg Fwd Diagnoses Z34.90 H/O section Z98.891
--- NOTE | 2024-11-08 09:10 | ANE.PACU2 ---
Inpatient post-anesthesia follow up: Airway intact: Yes Vital signs: Temperature 98.3 F Pulse Rate 110 Respiratory Rate 18 Blood Pressure 87/54 Pulse Oximetry 98 Oxygen Delivery Me thod Room Air Oxygen Flow Rate Fraction of Inspir ed Oxygen Hydration adequate: Yes Nausea and vomiting: No Pain level: 1 Mental status: Baseline
--- NOTE | 2024-11-08 09:10 | PM.OP ---
Operative Report Date of procedure: November 08, 2024 Pre-op diagnosis: 39 w 3 d previous x one for repeat Post-op diagnosis: same Post-op findings: Vigorous female Clear amniotic fluid Normal placenta and cord Normal uterus, tubes, and ovaries Procedure done: Repeat low-transverse Specimens removed/disposition: placenta and cord, discarded Surgeon: Cm Herrera MD Senior Government Program Analyst: Anthony Hanson MD Anesthesia: Spinal Estimated blood loss (mL): 500 Complications: none Findings: Vigorous female Clear amniotic fluid Normal placenta and cord Normal uterus, tubes, and ovaries Condition: stable Disposition: floor Brief History: 29 y.o. at 39 w 3 d with previous x one Procedure: Informed consent signed. Patient was taken to the operating room, placed supine in the left lateral tilt position. Spinal anesthesia and a Lee catheter were already placed. The abdomen was prepped and draped in the usual sterile fashion. The old scar was excised using a scalpel. The incision was carried down through skin and subcutaneous tissue and fascia. The fascial incision was extended laterally with Trevino scissors. The fascia was from the underlying rectus muscles. The rectus muscles were split in the midline. The peritoneum was entered bluntly avoiding underlying organs. A bladder flap was created. A low transverse uterine incision was made and extended laterally bluntly avoiding the uterine vessels. Clear amniotic fluid was seen. The baby was delivered in cephalic presentation atraumatically. The baby was suctioned. The cord was clamped and cut and the baby was handed to an awaiting cornice upholsterer. Cord blood was obtained. The placenta was manually removed intact. The uterus was exteriorized. The uterine cavity was bluntly curetted with wet laps. The uterine incision was then closed with a continuous interlocking stitch of O Vicryl. A second layer of O-Vicryl was used for uterine closure. Adequate hemostasis was seen. No bleeding was seen. The uterine incision was again inspected and found to have good hemostasis. The uterus was returned into the abdominal cavity. The peritoneum was closed using a running suture. The fascia was then closed with a continuous stitch of O-Vicryl. The subcutaneous tissue was irrigated and inspected for hemostasis. The skin was then reapproximated using eleanor. Postoperative condition stable Disposition to recovery room Estimated blood loss 500 cc, no replacement Sponge, needle, and instrument counts were correct x two There were no complications
[2024-11-08] MEDS: diphenhydrAMINE 50 mg/mL SDV 1mL 25 MG IVP (10:29)
[2024-11-08] MEDS: acetaminophen 1,000 MG/100 ML PIGGYBACK 400 MG IV (16:44)
[2024-11-08] MEDS: ferrous sulfate EC 325 mg Tablet PO (17:55)
[2024-11-08 23:12] LABS: Hematocrit 22.8 % (36-47); Hemoglobin 6.90 g/dL (11.27-16.99); Mean Corpuscular HGB Conc 30.3 g/dL (30-55); Mean Corpuscular Hemoglobin 22.5 pg (27-33); Mean Corpuscular Volume 74.3 fl (85-98); Platelet Count 164 10^3/cmm (157-399); Red Blood Count 3.07 10^6/uL (3.85-5.65); White Blood Count 14.50 10^3/uL (3.29-11.43)
[2024-11-09] VITALS (9 sets, daily range): BP systolic 86–110; BP diastolic 46–70; PULSE 75–91; RESP 15–16; TEMP 35.9–36.7
[2024-11-09] MEDS: acetaminophen 1,000 MG/100 ML PIGGYBACK 400 MG IV ×2 (00:52→08:52)
[2024-11-09] MEDS: PRENATAL VIT NO.130/IRON/FOLIC 1 EACH TABLET PO (08:45)
[2024-11-09] MEDS: ferrous sulfate EC 325 mg Tablet PO ×2 (08:45→21:00)
--- NOTE | 2024-11-09 09:05 | PM.OBGYPN ---
OTHER SPATIAL SCIENTIST Subjective Subjective: Interval history: c/o mild incisional pain c/o right shoulder pain no shortness of breath no bleeding, nausea, vomiting tolerating PO well caring for infant without any difficulties Labor: Amniotic Membrane Status: Intact Monitor Mode: Palpation Contraction Pattern: Irregular Status: Category I Vitals/I&O/Wt Last Vital Signs Temp 96.6 F L 11/09/24 21:01 Pulse 95 11/10/24 04:22 Resp 16 11/09/24 16:50 BP 120/56 11/10/24 04:22 Pulse Ox 100 11/08/24 18:15 O2 Del Method Room Air 11/08/24 18:15 11/09/24 11/10/24 11/10/24 22:59 06:59 14:59 Intake Total 740 / 740 Balance 740 / 740 Physical Exam Narrative: General comfortable, awake, alert VS afebrile, normal Lungs: clear Cor: RRR Abd: soft, nontender Wound clean and dry Ext: no edema Urinary Catheter Management: [place] Latex Free: Cath Placed During This Visit: yes, but has since been removed by the nurse Reason for Continuing Indwelling Catheter: Decision to DC Catheter Urinary Catheter Date of Insertion: 11/08/24 Urinary Catheter Time of Insertion: 07:25 Date Urinary Catheter Removed: 11/08/24 Time Urinary Catheter Discontinued: 18:45 Data 11/08/24 22:30 A&P Assessment and plan 1. H/O section: POD #1 RCS doing well continue postop care remove machado ambulate right shoulder pain likely gas pains continue to monitor PDMP PDMP Reviewed: Not Reviewed Attestations Medical Necessity Statement*: patient s/p repeat , continue care Coding Level of Care Code Acute Code for Chg Fwd Diagnoses H/O section Z98.891
[2024-11-10] MEDS: HYDROcodone-acetaminophen 5-325 mg Tablet 1 TAB PO ×2 (00:58→07:38)
[2024-11-10 04:22] VITALS: BP 120/56; PULSE 95
[2024-11-10] MEDS: ferrous sulfate EC 325 mg Tablet PO (07:38)
[2024-11-10] MEDS: PRENATAL VIT NO.130/IRON/FOLIC 1 EACH TABLET PO (10:27)
[2024-11-10 10:46] LABS: Hematocrit 23.6 % (36-47); Hemoglobin 6.90 g/dL (11.27-16.99); Mean Corpuscular HGB Conc 29.2 g/dL (30-55); Mean Corpuscular Hemoglobin 22.7 pg (27-33); Mean Corpuscular Volume 77.6 fl (85-98); Nucleated Red Blood Cells % 0 %; Platelet Count 166 10^3/cmm (157-399); Red Blood Count 3.04 10^6/uL (3.85-5.65); White Blood Count 11.35 10^3/uL (3.29-11.43)
[2024-11-10 12:23] VITALS: BP 150/64; PULSE 120; RESP 16; TEMP 36.7; O2SAT 98
[2024-11-10 12:25] VITALS: BP 150/64; PULSE 120; RESP 16; TEMP 36.7; O2SAT 98
--- NOTE | 2024-11-10 13:42 | PM.OBGYDC ---
Discharge Providers [facility] Date of Admission: 11/08/24 05:15 Date of Discharge: 11/10/24 Attending Provider at Admission: Anthony Hanson MD Attending Provider at Discharge: MD Sharon Diagnoses at Discharge Discharge Diagnosis 1. H/O section: Details from hospital stay: Scheduled repeat CS at 39+ weeks Reason for Visit Reason for Visit: C Section Hospital Course Hospital Course Patient admitted for scheduled repeat section at 39 weeks. Spinal anesthesia administered successfully and repeat section performed without complications. A healthy baby boy/girl was delivered. Mother and baby tolerated the procedure well and remained stable throughout the postoperative period. Discharge condition Vital signs stable and within normal limits. Incision site clean, dry, and intact with no signs of infection. Minimal vaginal bleeding (Lochia). Pain well-controlled with oral pain medication. Ambulating independently. Successful established/Formula feeding tolerated. Discharge medications Ibuprofen: As needed for pain. Acetaminophen: As needed for pain. Stool softener: As needed for constipation. vitamins: Continue daily. Discharge instructions Wound Care: Keep incision site clean and dry. Shower normally, allowing water to run over the incision. Do not scrub the incision. Pat incision dry gently after showering. Do not soak in baths, hot tubs, or go swimming until cleared by provider (typically 3 weeks ). Monitor for signs of infection: redness, swelling, increased pain, warmth, or discharge. Report any signs to your provider immediately. Activity: Rest when possible. Limit lifting anything heavier than the baby for 6-8 weeks. Avoid strenuous activity, heavy housework, jogging, or intense exercise for 6-8 weeks, or until cleared by provider. Begin with short walks and gradually increase activity as tolerated. Avoid driving for at least 2 weeks, or while taking narcotic pain medication. Do not use tampons or have intercourse for 6 weeks, or until cleared by your provider. Pain Management: Take pain medication as directed. Consider using a heating pad on a low setting or a warm washcloth for incision site pain. Nutrition: Eat a healthy diet rich in fruits, vegetables, and whole grains. Drink plenty of fluids, at least 8 cups of water daily, to prevent constipation. : Continue on demand, ensuring a proper latch. If experiencing engorgement, apply warm compresses before feeding and cold compresses between feedings. Consult with a cleaning validation consultant if needed. Emotional Well-being: Be aware of baby blues (mood swings, anxiety, fatigue) in the first few weeks, which are common and typically resolve on their own. If experiencing persistent sadness, anxiety, or difficulty coping, seek support from your provider as you may be experiencing depression or anxiety. When to Call Your Doctor Immediately: Fever of 101?F or higher. Signs of infection at the incision site. Heavy vaginal bleeding (soaking more than one pad per hour, or passing large clots). Severe or worsening abdominal pain. Chest pain or shortness of breath. Swelling, redness, or pain in one leg. Unusual vaginal discharge or foul odor. Any concerns about your health or your baby's health. Follow-up appointments Schedule a follow-up appointment with your [facility] or technology program manager in 1 weeks to check your incision and address any concerns. Schedule a comprehensive checkup with your [facility] 4 weeks to assess your overall physical and mental well-being. Information Peripartum Data: Delivery Method: Physical Exam Narrative: General comfortable, awake, alert VS afebrile, normal Lungs: clear Cor: RRR Abd: soft, nontender Wound clean and dry Ext: no edema Urinary Catheter Management: Lee Latex Free: Cath Placed During This Visit: yes, but has since been removed by the nurse Reason for Continuing Indwelling Catheter: Decision to DC Catheter Urinary Catheter Date of Insertion: 11/08/24 Urinary Catheter Time of Insertion: : Date Urinary Catheter Removed: 11/08/24 Time Urinary Catheter Discontinued: 18:45 History History History 2 Term 1 0 Miscarriages/Ectopic 0 Living Children 1 Discharge Data Studies Completed and Pending Pending at discharge Category Date Time Status High Risk PP Hemorrhage Stat Lab 11/08/24 10:42 Received Laboratory Results WBC 11.35 10^3/uL (3.29-11.43) 11/10/24 10:33 RBC 3.04 10^6/uL (3.85-5.65) L 11/10/24 10:33 Hgb 6.90 g/dL (11.27-16.99) L 11/10/24 10:33 Hct 23.6 % (36-47) L 11/10/24 10:33 MCV 77.6 fl (85-98) L 11/10/24 10:33 MCH 22.7 pg (27-33) L 11/10/24 10:33 MCHC 29.2 g/dL (30-55) L 11/10/24 10:33 RDW 15.8 % (12.1-15.1) H 11/10/24 10:33 Plt Count 166 10^3/cmm (157-399) 11/10/24 10:33 MPV 11.2 fL (7.4-10.4) H 11/10/24 10:33 Neut % (Auto) 62.3 % 11/10/24 10:33 Lymph % (Auto) 25.6 % 11/10/24 10:33 Ble[place] % (Auto) 8.2 % 11/10/24 10:33 Eos % (Auto) 1.9 % 11/10/24 10:33 Baso % (Auto) 0.3 % 11/10/24 10:33 Neut # (Auto) 7.09 10^3/uL (1.8-7.7) 11/10/24 10:33 Lymph # (Auto) 2.9 10^3/uL (0.8-4.8) 11/10/24 10:33 [place]ck[place] # (Auto) 0.9 10^3/uL (0.2-0.9) 11/10/24 10:33 Eos # (Auto) 0.2 10^3/uL (0.0-0.8) 11/10/24 10:33 Baso # (Auto) 0.0 10^3/uL (0.0-0.1) 11/10/24 10:33 Nucleated RBC % (auto) 0 % 11/10/24 10:33 Nucleated RBCs # 0.0 /100WBC 11/10/24 10:33 Blood Type A Positive 11/08/24 05:35 Rho(D) Type Rh positive 11/08/24 05:35 Antibody Screen Negative 11/08/24 05:35 Vitals Last Vital Signs Temp 98.0 F 11/10/24 12:25 Pulse 120 H 11/10/24 12:25 Resp 16 11/10/24 12:25 BP 150/64 11/10/24 12:25 Pulse Ox 98 11/10/24 12:25 O2 Del Method Room Air 11/10/24 12:23 Results Labs OB ([facility]): Obstetrics US 09/12/24 Blood Type A Positive 11/08/24 Antibody Screen Negative 11/08/24 Hct, (36-47) 23.6 % L Today Hgb, (11.27-16.99) 6.90 g/dL L Today Rho(D) Type Rh positive 11/08/24 Plt Count, (157-399) 166 10^3/cmm Today Hep Bs Antigen, (Nonreactive) Non-reactive 04/27/24 Hepatitis C Antibody, (Nonreactive) Non-reactive 04/27/24 Rubella IgG Antibody, (0.0-10.0) 56.2 IU/mL H 04/27/24 RPR, (Nonreactive) Nonreactive 04/27/24 HIV 1&2 Ab & HIV 1 Ag, (Non-Reactiv) Non-reactive 04/27/24 TSH, (0.27-4.20) 0.58 uIU/mL 04/27/24 C.trachomatis RNA (TMA), (NOT DETECTED) Not detected 05/04/23 N.gonorrhoeae RNA (TMA), (NOT DETECTED) Not detected 05/04/23 Chlamydia/GC Comment See note 05/04/23 Glucose 1 Hr 50 gm, (85-140) 121 mg/dL 08/23/24 Gest Glucose Tolerance, (70-139) 145 mg/dL H 05/14/23 Ser , Semi-Qnt 75690.00 mIU/mL 03/30/24 HCG, Qual, (Negative) Positive H 03/30/24 Urine Opiates Screen, (Negative) Negative ng/mL 04/27/24 Ur Barbiturates Screen, (Negative) Negative ng/mL 04/27/24 Ur Phencyclidine Scrn, (Negative) Negative ng/mL 04/27/24 Ur Amphetamines Screen, (Negative) Negative ng/mL 04/27/24 U Benzodiazepines Scrn, (Negative) Negative ng/mL 04/27/24 Urine Cocaine Screen, (Negative) Negative ng/mL 04/27/24 U Marijuana (THC) Screen, (Negative) Negative ng/mL 04/27/24 Micro Urine Specimen 04/27/24 Pap Smear Interpret See note 08/09/23 Discharge Plan Discharge Patient Disposition: Home Condition: Stable Prescriptions: New ferrous gluconate 240 mg (27 mg iron) tablet 240 mg PO BID Qty: 60 6RF oxycodone-acetaminophen [Percocet] 5-325 mg tablet 1 tab PO Q8H PRN (Reason: pain) Qty: 20 0RF Continued Gummies 400 mcg-35 mg- 25 mg-5 mg Tablet,Chewable 1 tab PO DAILY Discharge Order = DC NOW: Discharge Order (Routine); Ordered 11/10/24 Ordered By: Cm Herrera Referrals: Cm Herrera MD [Physician, [facility]] - 11/15/24 2:00 pm Discharge Diet: Usual diet Discharge Activity: Increase activity as tolerated and Limit activity as instructed Patient Instructions: Depression (DC), Opioid Safety (DC), Preeclampsia and Eclampsia After Delivery (GEN), Hemorrhage (DC), OB [facility], OB Food/Drug Interaction Guide, Opioid Safety, OB Home Care, Patient Portal & Mary Instructions, Abnormal Bleeding Discharge Attestations [facility] Time Spent in Discharge Care*: greater than 30 min Coding Level of Care Code Acute Code for Chg Fwd Diagnoses H/O section Z98.891
[2024-11-11 10:51] LABS: High Risk PP Hemorrhage BBK Notified
== END 2024-11-10 13:55 | disposition home or self-care (01) | DRG 788 ==
PROVIDERS: Obstetrics & Gynecology; Admitting Provider Obstetrics & Gynecology; Visit Provider Obstetrics & Gynecology
PROC: 10D00Z1 Extraction of Products of Conception, Low, Open Approach (ICD-10-PCS; CPT 59514; principal; 2024-11-08 07:00)
DX: O34.211 Maternal care for low transverse scar from previous cesarean delivery (principal); N85.8 Other specified noninflammatory disorders of uterus; Z3A.39 39 weeks gestation of pregnancy; Z37.0 Single live birth
CPT/HCPCS: 12345; 36415; 51702; 59025; 59409; 85025; 85027; 86850; 86900; 96374; 96376; J0131; J1100; J1200; J1885; J2274; J2371; J2405; J2765; J3010; J3490; J7030; J7121; J9999

== ENCOUNTER → 2024-11-15 15:00 | Outpatient (BNVA) | payer BC, MEDICAID, SELFPAY | PROVIDERS: Visit Provider Obstetrics & Gynecology | DX: R10.2 Pelvic and perineal pain (principal) | CPT/HCPCS: 84315; 87086 ==